=== PATIENT | female | born 1935 | race Caucasian/White ===

== ENCOUNTER 2022-07-08 14:20 | Emergency (ER) | payer MEDICARE ==
[2022-07-08] MEDS ORDERED: BABY ASPIRIN 81 MG CHEW PO ONE (14:38)
[2022-07-08 14:56] LABS: Absolute Neutrophil Ct (ANC) 5.02 x10^3/uL (1.4-6.9); Basophil (Absolute #) 0.06 x10^3/uL (0-0.4); Eosinophil % 1.4 % (0.00-5.0); Eosinophil (Absolute #) 0.12 x10^3/uL (0-0.5); Hemoglobin 13.9 g/dL (12.0-16.0); Lymphocyte (Absolute #) 2.51 x10^3/uL (1.0-4.6); Mean Corpuscular Hemoglobin 32.3 pg (26-32); Mean Corpuscular Hgb Concent. 32.3 g/dL (32-36); Mean Platelet Volume 10.2 fL (7.5-11.0); Monocyte (Absolute #) 0.63 x10^3/uL (0.0-1.3); Monocytes % 7.5 % (0.0-12.0); Neutrophil % 60.2 % (36.0-66.0); Platelet Count 208 x10^3/uL (150-450); Red Cell Distribution Width 12.7 % (11.5-14.0); White Blood Count 8.4 x10^3/uL (4.0-10.5)
--- NOTE | 2022-07-08 15:06 | XRAY ---
Indication: Comparison: None Portable chest demonstrates mild left infrahilar infiltrate versus atelectasis. Remaining heart and lungs unremarkable with incidental tortuous descending aorta. Bony thorax intact with osteopenia and mild degenerative changes.
[2022-07-08 15:19] LABS: ALKALINE PHOSPHATASE 69 U/L (38-126); ANION GAP 9.5 MEQ/L (5-15); BLOOD UREA NITROGEN 17 mg/dL (7-17); CHLORIDE 101 mmol/L (98-107); CK-Creatinine Phosphokinase 48 U/L (30-135); Calcium 9.1 mg/dL (8.4-10.2); Carbon Dioxide 28 mmol/L (22-30); Creatinine 1 0.82 mg/dL (0.52-1.04); EST GLOMERULAR FILTRATION RATE > 60.0 ML/MIN; Glucose 103 mg/dL (74-106); NT PRO BNP 356 pg/mL (0-1800); SGOT/AST 25 U/L (14-36); SGPT/ALT 17 U/L (0-35); SODIUM 135 mmol/L (137-145); Total Protein 6.8 g/dL (6.3-8.2)
--- NOTE | 2022-07-08 15:31 | ERPHSYRPT ---
- History of Present Illness Time Seen by Provider: 07/08/22 14:23 Historian: patient, EMS Exam Limitations: no limitations Patient Subjective Stated Complaint: EMS states pt was having chest pain but is now resolved, pt has laceraction to left thumb Triage Nursing Assessment: pt came into the er via ambulance; pt is axo x1; c/o chest pain; pt states pain to rt chest; clear apical heart tone; strong liya radial; strong liya pedal pulse; slight BLE edema; skin PDW; hypertension Physician History: 86-year-old female resident of long term with history of dementia, hypertension, hyperlipidemia, hypothyroidism, arthritis is brought in the ER with chief complaint of chest pain which she was complaining earlier and it resolved after few minutes. Patient does not have any chest pain currently. She also has a small laceration to left thumb palmar aspect with no active bleeding. She does not know exactly how to this happened. Patient is not a good historian and history is limited. She is not in any distress. Nitro Today/Relief: no nitro taken today Aspirin Treatment Today: unknown Allergies/Adverse Reactions: No Known Drug Allergies Allergy (Unverified 07/08/22 14:22) Home Medications: Donepezil HCl [Aricept] 5 mg PO HS 07/08/22 [History] Duloxetine HCl 60 mg PO DAILY 07/08/22 [History] Leucovorin Calcium 5 mg PO WEEKLY 07/08/22 [History] Melatonin 5 mg PO HS 07/08/22 [History] Memantine HCl [Namenda] 10 mg PO DAILY 07/08/22 [History] Metoprolol Succinate 100 mg [Toprol Xl 100 MG] 100 mg PO DAILY 07/08/22 [History] Simvastatin 40 mg PO HS 07/08/22 [History] metHOTREXate sodium [Trexall] 2.5 mg PO WEEKLY 07/08/22 [History] Hx Tetanus, Diphtheria Vaccination/Date Given: No (unknown) Hx Influenza Vaccination/Date Given: No (unknown) Hx Pneumococcal Vaccination/Date Given: No (unknown) Travel Risk - International Travel Have you traveled outside of the country in past 3 weeks: No - Coronavirus Screening Are you exhibiting any of the following symptoms?: No Close contact with a COVID-19 positive Pt in past 14-21 Days: No - Vaccine Status Have you recieved a Covid-19 vaccination: No Club Waiter/Waitress: Unknown - Vaccination Dates Dates if Unknown: unknown - Review of Systems All Other Systems: Unable due to dementia - Past Medical History Pertinent Past Medical History: Yes Neurological History: Dementia ENT History: No Pertinent History Cardiac History: Hypertension Respiratory History: No Pertinent History Endocrine Medical History: No Pertinent History Musculoskeletal History: Arthritis GI Medical History: No Pertinent History History: No Pertinent History Psycho-Social History: Anxiety Female Reproductive Disorders: No Pertinent History - Past Surgical History Past Surgical History: No (pt unsure) - Social History Smoking Status: Never smoker Exposure to second hand smoke: No Drug Use: none - Nursing Vital Signs Nursing Vital Signs: Initial Vital Signs Temperature 98.1 F 07/08/22 14:22 Pulse Rate 59 L 07/08/22 14:22 Respiratory Rate 20 07/08/22 14:22 Blood Pressure 183/79 07/08/22 14:22 O2 Sat by Pulse Oximetry 95 07/08/22 14:22 Pain Scale Pain Intensity 0 - Physical Exam General Appearance: no apparent distress, alert Eye Exam: PERRL/EOMI Ears, Nose, Throat Exam: normal ENT inspection Neck Exam: normal inspection, full range of motion Respiratory Exam: normal breath sounds, lungs clear Cardiovascular Exam: regular rate/rhythm, normal heart sounds Gastrointestinal/Abdomen Exam: soft, No tenderness Back Exam: normal inspection Extremity Exam: normal range of motion, lacerations (2 cm superficial laceration left thumb pulp with no active spurting or losing. No bony tenderness. Intact range of motion at distal interphalangeal joint. No nail damage.) Neurologic Exam: alert, cooperative, generator mechanic II-XII nml as tested, No oriented x 3 Skin Exam: normal color SpO2 Interpretation: normal SpO2: 95 O2 Delivery: Room Air Procedures - Laceration/Wound Repair Left Finger Time of Procedure: 16:28 Wound Location: Left (thumb) Wound Length (cm): 2 Wound's Depth, Shape: superficial, linear Wound Explored: clean Irrigated: Yes Hibiclens Prep: Yes Wound Repaired With: Steri-strips, Dermabond Sterile Dressing Applied?: Yes - Course EKG Interpreted by Me: RATE (60), Sinus Rhythm, Left [place] Deviation, NORMAL INTERVALS, NORMAL QRS Ordered Tests: Active Orders 24 hr Category Date Time Status Inner Diameter Grinder Tool STAT Care 07/08/22 14:39 Completed EKG-ER Only STAT Care 07/08/22 14:38 Completed IV Insertion STAT Care 07/08/22 14:38 Completed CHEST 1 VIEW (PORTABLE) Stat Exams 07/08/22 14:38 Completed CBC W DIFF Stat Lab 07/08/22 14:53 Completed CK-Creatinine Phosphokinase Stat Lab 07/08/22 14:53 Completed CMP Stat Lab 07/08/22 14:53 Completed NT PRO BNP Stat Lab 07/08/22 14:53 Completed TROPONIN Q4H Lab 07/08/22 14:53 Completed TROPONIN Q4H Lab 07/08/22 18:45 Completed Medication Summary Discontinued Medications Generic Name Dose Route Start Last Admin Trade Name Freq PRN Reason Stop Dose Admin Aspirin 324 mg 07/08/22 14:38 07/08/22 14:53 Aspirin 81 Mg Tab.Chew PO 07/08/22 14:39 324 mg STAT ONE Administration Lorazepam 1 mg 07/08/22 17:03 07/08/22 17:05 Lorazepam 1 Mg Tablet PO 07/08/22 17:04 1 mg STAT ONE Administration Lorazepam Confirm 07/08/22 17:05 Lorazepam 1 Mg Tablet Administered 07/08/22 17:06 Dose 1 mg .ROUTE .STK-MED ONE Lab/Rad Data: Laboratory Result Diagrams 07/08/22 14:53 07/08/22 14:53 Laboratory Results 07/08/22 07/08/22 07/08/22 Range/Units 18:45 14:53 14:53 WBC (4.0-10.5) x10^3/uL RBC (4.1-5.4) x10^6/uL Hgb (12.0-16.0) g/dL Hct (35-47) % MCV (78-100) fL MCH (26-32) pg MCHC (32-36) g/dL RDW (11.5-14.0) % Plt Count (150-450) x10^3/uL MPV (7.5-11.0) fL Gran % (36.0-66.0) % Immature Gran % (Auto) (0.00-0.4) % Nucleat RBC Rel Count (0.00-0.1) % Eos # (Auto) (0-0.5) x10^3/uL Immature Gran # (Auto) (0.00-0.03) x10^3u/L Absolute Lymphs (auto) (1.0-4.6) x10^3/uL Absolute Monos (auto) (0.0-1.3) x10^3/uL Absolute Nucleated RBC (0.00-0.01) x10^3u/L Lymphocytes % (24.0-44.0) % Monocytes % (0.0-12.0) % Eosinophils % (0.00-5.0) % Basophils % (0.0-0.4) % Absolute Granulocytes (1.4-6.9) x10^3/uL Basophils # (0-0.4) x10^3/uL Sodium 135 L (137-145) mmol/L Potassium 4.0 (3.5-5.1) mmol/L Chloride 101 (98-107) mmol/L Carbon Dioxide 28 (22-30) mmol/L Anion Gap 9.5 (5-15) MEQ/L BUN 17 (7-17) mg/dL Creatinine 0.82 (0.52-1.04) mg/dL Estimated GFR > 60.0 ML/MIN Glucose 103 (74-106) mg/dL Calcium 9.1 (8.4-10.2) mg/dL Total Bilirubin 0.40 (0.2-1.3) mg/dL AST 25 (14-36) U/L ALT 17 (0-35) U/L Alkaline Phosphatase 69 (38-126) U/L Creatine Kinase 48 (30-135) U/L Troponin I < 0.012 < 0.012 (0.000-0.034) ng/mL NT-Pro-B Natriuret Pep 356 (0-1800) pg/mL Serum Total Protein 6.8 (6.3-8.2) g/dL Albumin 4.0 (3.5-5.0) g/dL 07/08/22 Range/Units 14:53 WBC 8.4 (4.0-10.5) x10^3/uL RBC 4.30 (4.1-5.4) x10^6/uL Hgb 13.9 (12.0-16.0) g/dL Hct 43.0 (35-47) % MCV 100.0 (78-100) fL MCH 32.3 H (26-32) pg MCHC 32.3 (32-36) g/dL RDW 12.7 (11.5-14.0) % Plt Count 208 (150-450) x10^3/uL MPV 10.2 (7.5-11.0) fL Gran % 60.2 (36.0-66.0) % Immature Gran % (Auto) 0.2 (0.00-0.4) % Nucleat RBC Rel Count 0.0 (0.00-0.1) % Eos # (Auto) 0.12 (0-0.5) x10^3/uL Immature Gran # (Auto) 0.02 (0.00-0.03) x10^3u/L Absolute Lymphs (auto) 2.51 (1.0-4.6) x10^3/uL Absolute Monos (auto) 0.63 (0.0-1.3) x10^3/uL Absolute Nucleated RBC 0.00 (0.00-0.01) x10^3u/L Lymphocytes % 30.0 (24.0-44.0) % Monocytes % 7.5 (0.0-12.0) % Eosinophils % 1.4 (0.00-5.0) % Basophils % 0.7 (0.0-0.4) % Absolute Granulocytes 5.02 (1.4-6.9) x10^3/uL Basophils # 0.06 (0-0.4) x10^3/uL Sodium (137-145) mmol/L Potassium (3.5-5.1) mmol/L Chloride (98-107) mmol/L Carbon Dioxide (22-30) mmol/L Anion Gap (5-15) MEQ/L BUN (7-17) mg/dL Creatinine (0.52-1.04) mg/dL Estimated GFR ML/MIN Glucose (74-106) mg/dL Calcium (8.4-10.2) mg/dL Total Bilirubin (0.2-1.3) mg/dL AST (14-36) U/L ALT (0-35) U/L Alkaline Phosphatase (38-126) U/L Creatine Kinase (30-135) U/L Troponin I (0.000-0.034) ng/mL NT-Pro-B Natriuret Pep (0-1800) pg/mL Serum Total Protein (6.3-8.2) g/dL Albumin (3.5-5.0) g/dL - Progress Progress: improved, re-examined Air Movement: good Progress Note: 07/08/22 19:24 86-year-old is evaluated for right-sided chest pain earlier which is improved on presentation in the ER and she did not complain of any pain throughout stay in the ER. EKG did not show any acute ischemic changes and patient has negative troponins x2. Chest x-ray negative for any acute cardiopulmonary findings. Patient is maintaining oxygen saturation around 96% on room air. She is not in any distress. Patient is doing very anxious about cut on the left thumb which was superficial, repaired with Steri-Strip and glue. No bony tenderness. She is given oral Ativan and she is calm down. Pain is not very typical of CAD, recommended outpatient follow-up with primary care and cardiology. Recommendations will be sent to long term along with paperwork as patient has dementia. 07/08/22 19:27 Blood Culture(s) Obtained: No Antibiotics given: No Counseled pt/family regarding: lab results, diagnosis, need for follow-up, rad results - Departure Departure Disposition: Home Clinical Impression: Atypical chest pain, Thumb laceration, Anxiety Condition: Stable Critical Care Time: No Referrals: DOCTOR,NO FAMILY [Primary Care Provider] - Follow up/PCP as directed JONELLE RODRIGUEZ [ACTIVE STAFF] - Follow up/PCP as directed (Call for appointment for reevaluation) Instructions: Laceration Repair With Glue (DC), Chest Pain (DC), Anxiety, Adult ED Additional Instructions: Follow-up with primary care and cardiology for reevaluation in the next 1 to 2 days. Send patient back for further evaluation if again having chest pain or difficulty breathing.
[2022-07-08] MEDS ORDERED: Ativan 1 MG PO ONE (17:03)
[2022-07-08] MEDS ORDERED: Ativan 1 MG ONE (17:05)
[2022-07-08 18:32] VITALS: BP 161/75
[2022-07-08 19:50] VITALS: PULSE 65
[2022-07-08 20:48] VITALS: O2SAT 95
== END 2022-07-08 19:45 | disposition home or self-care (01) ==
LOC: ED 14:20
DX: R07.89 Other chest pain (principal); S61.012A Laceration without foreign body of left thumb without damage to nail, initial encounter; F41.9 Anxiety disorder, unspecified; I10 Essential (primary) hypertension; Z79.899 Other long term (current) drug therapy; Z28.310 Unvaccinated for COVID-19
CPT/HCPCS: 12001; 36000; 36415; 71045; 80053; 82550; 83880; 84484; 85025; 93005; 93041; 99284; A9270-GY